=== PATIENT | female | born 1975 | race Asian ===

== ENCOUNTER 2025-01-03 08:10 | Emergency (ER) | payer MEDICAID, SELFPAY ==
[2025-01-13 08:19] VITALS: BP 128/84; PULSE 73; RESP 17; TEMP 36.5; O2SAT 99; BMI 23.8
[2025-01-13] MEDS: TETRACAINE PF OP SOL 0.5% 4 ML DRPETTE 1 DROP LEFT EYE (08:44)
[2025-01-13] MEDS: FLUORESCEIN SOD 1 MG STRP LEFT EYE (08:44)
--- NOTE | 2025-01-13 08:54 | EDNOTE_ITS ---
<Statement entered by Flora Smith MD - 01/13/25 17:34> As co-signing physician, I was present and available for consult prn. I concur with the plan and care as documented by the midlevel provider. ED Eye Problem RME/HPI General Chief complaint: Eye Problems Stated complaint: Eye Swelling/Nausea/Headache Time Seen by Provider: 01/13/25 08:31 Arrival date/time: 01/13/25 08:10 49-year-old female with no known medical history presents to the emergency room with a chief complaint of right sided eye swelling nausea and a headache x 3. Limitations: no limitations Related Data Previous Rx's ?Medication ?Instructions ?Recorded ibuprofen 600 mg tablet 600 mg PO TID PRN pain #30 t abs 10/25/21 benzonatate 100 mg capsule 100 mg PO TID PRN cough #20 caps 11/19/21 tobramycin 0.3 % eye drops 2 drp ophthalmic (eye) Q2H #5 mL 01/13/25 Allergies Allergy/AdvReac Type Severity Reaction Status Date / Time No Known Allergies Allergy Verified 10/25/21 16:38 Review of Systems Review of Systems Systems Reviewed: All systems reviewed, normal except as documented Constitutional Constitutional: Reports system reviewed and no additional complaints, except as documented, Denies fatigue, Denies fever(s), Denies headache(s) and Denies weakness Eyes Eyes: Reports system reviewed and no additional complaints, except as documented, Denies blind spots, Reports blurry vision, Denies change in vision, Denies decreased night vision, Denies diplopia, Reports eye discharge, Denies dry eyes, Denies exophthalmos, Denies floaters, Reports irritation, Denies itchy eyes, Denies loss of peripheral vision, Denies loss of vision, Denies other visual disturbances, Denies photophobia, Denies requires corrective lenses, Denies seeing flashes, Denies spots in vision and Denies tunnel vision ENT Ears, Nose, Mouth, and Throat: Reports system reviewed and no additional complaints, except as documented, Denies otalgia, Denies headache(s), Denies nasal congestion, Denies throat swelling and Denies vertigo Cardiovascular Cardiovascular: Reports system reviewed and no additional complaints, except as documented, Denies chest pain, Denies dyspnea and Denies dyspnea on exertion Respiratory Respiratory: Reports system reviewed and no additional complaints, except as documented, Denies chest congestion, Denies cough, Denies dyspnea, Denies dyspnea on exertion and Denies wheezing Gastrointestinal Gastrointestinal: Reports system reviewed and no additional complaints, except as documented, Denies abdominal pain, Denies cramping, Denies nausea and Denies vomiting Genitourinary Genitourinary: Reports system reviewed and no additional complaints, except as documented Musculoskeletal Musculoskeletal: Reports system reviewed and no additional complaints, except as documented and Denies back pain Integumentary/Breasts Skin/Breast: Reports system reviewed and no additional complaints, except as documented and Denies wounds Neurologic Neurologic: Reports system reviewed and no additional complaints, except as documented, Denies confusion, Denies headache(s), Denies lack of coordination, Denies loss of vision, Denies vertigo and Denies weakness Psychiatric Psychiatric: Reports system reviewed and no additional complaints, except as documented, Denies anxiety, Denies confusion, Denies depression, Denies paranoia, Denies suicidal ideation and Denies tactile hallucinations Endocrine Endocrine: Reports system reviewed and no additional complaints, except as documented and Denies fatigue Hematologic/Lymphatic Hematologic/Lymphatic: Reports system reviewed and no additional complaints, except as documented and Denies lymphadenopathy Allergic/Immunologic Allergic/Immunologic: Reports system reviewed and no additional complaints, except as documented, Denies itchy eyes, Denies throat swelling, Denies urticaria and Denies wheezing Past Medical History Past Medical History NEUROLOGIC: Negative Neurological Disorders CARDIAC: Negative Cardiac Disorders or Congestive Heart Failure RESPIRATORY: Negative Chronic Obstructive Pulmonary Disease (COPD) GASTROINTESTINAL: Negative Gastrointestinal Disorders GENITOURINARY: Negative Genitourinary Disorders or Renal Disease REPRODUCTIVE: Negative Endometriosis, Pelvic Inflammatory Disease, Previous Pregnancies or Uterine Prolapse MUSCULOSKELETAL: Negative Musculoskeletal Disorders or Carpal Tunnel Syndrome ENT: Negative Cataracts, Glaucoma, Blind, Retinal Detachment, Macular Degeneration, Ear Infection, Deafness or Eye Prosthesis ENDOCRINE: Positive Hyperthyroidism (has some type of problem with her thyroid but takes no medications); Negative Diabetes Mellitus Type 1, Diabetes Mellitus Type 2, Hypoglycemia, Hypothyroidism, Parathyroid Disease, Pituitary Disease, Systemic Lupus Erythemat osus, Syndrome of Inappropriate Antidiuretic Hormone (SIADH) or Graves' Disease HEMATOLOGIC: Negative Blood Disorders or Anemia OTHER HISTORY: Negative Autoimmune Disease, Anesthesia Reactions, Organ Transplant, MRSA, Clostridium Difficile or Cancer Family History FAMILY HISTORY: Negative Family Psychiatric Problems, Family Respiratory Disorders, Family Cardiac Disorders, Family Gastrointestinal Problems, Family Cancer, Family Surgery or Family Anesthesia Reaction Surgical History SURGICAL: Negative Cardiac Surgery, Endocrine Surgery, Thyroidectomy, Ear Surgery, Tympanostomy Tube, Eye Surgery, Nose Surgery, Oral Surgery, Tonsillectomy, Adenoidectomy, Cochlear Implant, Corneal Transplant, Throat Surgery, Abdominal Surgery, Tracheostomy, Gastric Bypass Surgery, Gastrostomy, Bowel Surgery, Nephrectomy, Joint Replacement, Amputation, Open Reduction Internal Fixation, Arthroscopy, Neurologic Surgery, Brain Shunt, Mastectomy or Organ Transplant Social History SMOKING STATUS: Never smoker ED Exam General Limitations: Present no limitations General appearance: Present alert and in no apparent distress Head Head exam: Present atraumatic Eye Eye exam: Present normal appearance, PERRL and EOMI ENT ENT exam: Present normal exam, normal oropharynx and mucous membranes moist Neck Neck exam: Present normal inspection, full ROM and trachea midline Chest Chest inspection: Present normal inspection and symmetric chest wall rise Respiratory Respiratory exam: Present normal lung sounds bilaterally Cardiovascular Cardiovascular exam: Present regular rate, normal rhythm and normal heart sounds Abdominal Exam Abdominal exam: Present soft and normal bowel sounds Extremities Exam Extremities exam: Present normal inspection and full ROM Back Exam Back exam: Present normal inspection and full ROM Neurological Exam Neurological exam: Present alert, oriented X3 and CN II-XII intact Psychiatric Psychiatric exam: Present normal affect and normal mood Skin Skin exam: Present warm, dry, intact and normal color Course Quality Measures none Orders Category Date Time Status Visual Acuity X1 Care 01/13/25 08:23 Completed Asif Lamp to Bedside X1 Care 01/13/25 08:23 Completed Fluorescein Sodium [Bio-Shannan] Med 01/13/25 08:23 Discontinued 1 mg LEFT EYE X1 ONE Ibuprofen Tab [Motrin Tab] Med 01/13/25 08:55 Discontinued 600 mg PO X1 ONE Ondansetron Odt [Zofran Odt] Med 01/13/25 08:55 Discontinued 4 mg PO X1 ONE TETRACAINE Op Lindsey 0.5% [Pontocaine Op Lindsey 0.5%] Med 01/13/25 08:23 Discontinued 1 drop LEFT EYE X1 ONE Vital Signs Vital signs: Vital Signs Temperature 97.7 F 01/13/25 08:19 Pulse Rate 73 01/13/25 08:19 Respiratory Rate 17 01/13/25 08:19 Blood Pressure 128/84 01/13/25 08:19 Pulse Oximetry (%) 99 01/13/25 08:19 Oxygen Delivery Method Room Air 01/13/25 08:19 O2 saturation 99% within normal limits Eye MDM Narrative MDM Narrative:: 49-year-old female with no known medical history presents to the emergency room with a chief complaint of right sided eye swelling nausea and a headache x 3. Patient is hemodynamically stable and in no apparent distress Physical examination shows right-sided eye swelling. The upper eyelid is swollen there is a spot that looks like a stye. There is erythema in the conjunctiva and there is stringy discharge. The right eye was irrigated. A Asif lamp examination was completed and there is no evidence of any corneal abrasion or corneal ulceration. There is no rust ring and a negative Mumtaz sign. Patient's visual acuity test was within normal limits for her as she normally wears glasses. The patient denies any visual disturbances and states there is only irritation and erythema. Findings are consistent with bacterial conjunctivitis. Antibiotics were sent to the patient's pharmacy the patient was given instructions to follow-up with her primary care provider as a referral for an drug safety associate will be indicated if your sinus symptoms continue or get worse Patient was discharged and educated to follow-up with primary care provider in the next 24 to 48 hours and return to the emergency room for any evidence of worsening signs or symptoms Patient data External records reviewed:: [facility] previous records Clinical information provided by:: patient Social determinants that could affect healthcare access:: none Patient has the following chronic illnesses:: No chronic illness How is presenting disease/condition affected by chronic disease/condition?: no chronic disease Evaluation data The following diagnostics were reviewed and interpreted by me:: lab results and radiology exam(s) Lab and/or radiology exams considered but not ordered:: Labs and radiology exams considered and ordered Interpretation Summary: N/A Medications / Prescriptions Medications or Prescriptions considered but not ordered:: Medication given Medication administrations:: Medication Administration History Discontinued Medications Fluorescein Sodium (Fluorescein Sod 1 Mg Strp) 1 mg LEFT EYE X1 ONE Stop: 01/13/25 08:24 Last Admin: 01/13/25 08:44 Dose: 1 mg Documented By: DILLAN Ibuprofen (Ibuprofen Tab 600 Mg Tablet) 600 mg PO X1 ONE Stop: 01/13/25 08:56 Last Admin: 01/13/25 09:05 Dose: 600 mg Documented By: DILLAN Ondansetron HCl (Ondansetron Odt 4 Mg Tabrap) 4 mg PO X1 ONE; Protocol Stop: 01/13/25 08:56 Last Admin: 01/13/25 09:05 Dose: 4 mg Documented By: DILLAN Tetracaine HCl (Tetracaine Pf Op Lindsey 0.5% 4 Ml Drpette) 1 drop LEFT EYE X1 ONE Stop: 01/13/25 08:24 Last Admin: 01/13/25 08:44 Dose: 1 drop Documented By: VG Medication given Consultations Consultation(s) initiated? (list below): No Diagnosis Eye Problem Differential Diagnosis: corneal abrasion, conjunctivitis, hyphema, corneal ulcer and other Most likely diagnosis given after review of the tests above:: Bacterial conjunctivitis Admission Indicated Admission indicated?: not indicated Admission Request Was there a request for admission?: No Disposition Plan Disposition Plan: Discharge Discharge Attestation Discharge Attestation: The patient and all family members were given an opportunity to ask questions and understood the discharge instructions. Discharge instructions specifically effects, indications for sooner follow up or return to the emergency department, and the expected course of current diagnosis. Patient condition: Stable Discharge Plan Plan Patient Disposition: HOME (Self Care) Discharge Disposition comment: Stable Prescriptions/Referrals Prescriptions/Med Rec: New tobramycin 0.3 % drops 2 drp ophthalmic (eye) Q2H Qty: 5 0RF No Action ibuprofen 600 mg tablet 600 mg PO TID PRN (Reason: pain) Qty: 30 0RF benzonatate 100 mg capsule 100 mg PO TID PRN (Reason: cough) Qty: 20 0RF Problem List Clinical Impression: Bacterial conjunctivitis Patient/Caregiver Discharge Instructions Education Materials: What Is Conjunctivitis?, ED Conjunctivitis, Bacterial Additional Instructions: Please follow-up with your primary care provider in the next 24 to 48 hours. If your signs and symptoms continue you will need a referral to an drug safety associate for further management of your eye Looking in your eye and there is no corneal abrasions or ulcerations. Medication was sent to your pharmacy for any evidence of worsening signs or symptoms return to the emergency room immediately Print Language: Malian Stand Alone Forms: Kristy Santiago Info., Patient Portal Info Letter PA/KIMBERLY Supervising Physician PA/KIMBERLY Supervising Physician: Dr smith
[2025-01-13] MEDS: IBUPROFEN TAB 600 MG TABLET PO (09:05)
[2025-01-13] MEDS: ONDANSETRON ODT 4 MG TABRAP PO (09:05)
== END 2025-01-13 09:13 | disposition home or self-care (01) ==
LOC: SERX 01-13 09:18
PROVIDERS: Emergency Provider Emergency Medicine
DX: H10.89 Other conjunctivitis (principal)
CPT/HCPCS: 99283; Q0162; A9270